=== PATIENT | male | born 1975 | race Caucasian/White ===

== ENCOUNTER → 2017-11-16 | Outpatient (REF) | payer OTHER ==
[2017-11-17 10:50] LABS: HEPATITIS B SURFACE ANTIBODY NEGATIVE (POSITIVE)
[2017-11-17 10:50] LABS: HIV 1&2 SCREEN CENTAUR NEGATIVE (NEGATIVE)
== END ==
LOC: M SFHCPLAZ 08:53
DX: B19.20 Unspecified viral hepatitis C without hepatic coma (principal)

== ENCOUNTER → 2017-12-16 | Outpatient (REF) | payer OTHER ==
[2017-12-17 11:33] LABS: HEPATITIS C VIRUS ABY INDEX > 11.0 INDEX (<0.8)
[2017-12-20 14:11] LABS: HCV RNA (INTERNATIONAL UNITS) 16901000 IU/mL (.); HEPATITIS C QUANTITATION See Final Results IU/mL (.)
[2017-12-21 12:24] LABS: HCV RNA NAA QUALITATIVE Positive (Negative)
== END ==
LOC: M LABDRAW1 12:33
DX: B19.20 Unspecified viral hepatitis C without hepatic coma (principal)

== ENCOUNTER → 2018-01-18 | Outpatient (REF) | payer OTHER ==
[2018-01-18 15:52] LABS: ALBUMIN/GLOBULIN RATIO 1.11 (1.00-1.93); ALKALINE PHOSPHATASE 53 U/L (45-117); ALT/SGPT 51 U/L (12-78); AST/SGOT 30 U/L (7-37); BILIRUBIN,DIRECT 0.1 MG/DL (0.0-0.2); BILIRUBIN,TOTAL 0.5 MG/DL (0.2-1.0); TOTAL PROTEIN 7.6 GM/DL (6.4-8.2)
[2018-01-25 14:12] LABS: HCV RNA (INTERNATIONAL UNITS) 14718000 IU/mL (.); HEPATITIS C QUANTITATION See Final Results IU/mL (.)
== END ==
LOC: M SFHCPLAZ 13:48
DX: B19.20 Unspecified viral hepatitis C without hepatic coma (principal)
CPT/HCPCS: 80076

== ENCOUNTER → 2018-01-24 | Outpatient (CLI) | payer OTHER | LOC: M OUTALCOH 09:10 | DX: F14.20 Cocaine dependence, uncomplicated (principal) ==

== ENCOUNTER 2018-02-14 13:00 | Outpatient (RCR) | payer OTHER ==
[2018-02-21] MEDS ORDERED: DULO1CAP (18:48)
[2018-02-21] MEDS ORDERED: ARIP1TAB6 (18:48)
[2018-02-21] MEDS ORDERED: LISI10TA4 (18:48)
[2018-02-21] MEDS ORDERED: NALT50TA4 (18:48)
[2018-02-21] MEDS ORDERED: ATOR1TAB21 (18:48)
[2018-02-21] MEDS ORDERED: PANT20TA2 (18:48)
[2018-02-21] MEDS ORDERED: IBUP-1022 PO (20:34)
[2018-02-21] MEDS ORDERED: ROBA500T PO (20:34)
== END 2018-02-28 ==
LOC: M OUTALCOH 13:00
PROVIDERS: ATTEND Psychiatry & Neurology Psychiatry
DX: F14.20 Cocaine dependence, uncomplicated (principal); F12.20 Cannabis dependence, uncomplicated

== ENCOUNTER 2018-02-21 18:39 | Emergency (ER) | payer OTHER ==
[~2018-02-21] VITALS: Ht 167.6 cm; Wt 90.9 kg
[2018-02-21] MEDS ORDERED: NALT50TA4 (18:48)
[2018-02-21] MEDS ORDERED: ATOR1TAB21 (18:48)
[2018-02-21] MEDS ORDERED: DULO1CAP (18:48)
[2018-02-21] MEDS ORDERED: ARIP1TAB6 (18:48)
[2018-02-21] MEDS ORDERED: PANT20TA2 (18:48)
[2018-02-21] MEDS ORDERED: LISI10TA4 (18:48)
[2018-02-21 19:24] LABS: BASO # 0.1 10^3/uL (0.0-0.2); BASO % 0.6 % (0.0-1.0); EOS # 0.2 10^3/uL (0.0-0.50); EOS % 2.2 % (0.0-3.0); HEMATOCRIT 45.2 % (42.0-52.0); HEMOGLOBIN 15.4 g/dl (13.5-17.5); LYMPH # 3.2 10^3/uL (1.5-4.5); LYMPH % 35.6 % (24.0-44.0); MEAN CORPUSCULAR HEMOGLOBIN 32.3 pg (27.0-33.0); MEAN CORPUSCULAR HGB CONC 34.1 g/dl (32.0-36.5); MEAN CORPUSCULAR VOLUME 94.8 fl (80.0-96.0); MONO # 0.5 10^3/uL (0.0-0.8); MONO % 5.5 % (0.0-5.0); NEUTROPHILS % 55.9 % (36.0-66.0); PLATELET COUNT, AUTOMATED 268 10^3/uL (150-450); RED BLOOD COUNT 4.77 10^6/uL (4.30-6.10)
[2018-02-21] MEDS ORDERED: NS 1,000 ML IV ONE (19:45)
[2018-02-21] MEDS ORDERED: KETOROLAC 30 MG/ML VIAL (J1885) IV ONE (19:45)
[2018-02-21 19:53] LABS: ALBUMIN 3.7 GM/DL (3.2-5.2); ALT/SGPT 61 U/L (12-78); BILIRUBIN,DIRECT < 0.1 MG/DL (0.0-0.2); BILIRUBIN,TOTAL 0.2 MG/DL (0.2-1.0); BLOOD UREA NITROGEN 18 MG/DL (7-18); CARBON DIOXIDE LEVEL 27 MEQ/L (21-32); CHLORIDE LEVEL 102 MEQ/L (98-107); CREATININE FOR GFR 1.07 MG/DL (0.70-1.30); GLOMERULAR FILTRATION RATE > 60.0 (>60); GLUCOSE, FASTING 93 MG/DL (70-100); LIPASE 179 U/L (73-393); POTASSIUM SERUM 4.6 MEQ/L (3.5-5.1); SODIUM LEVEL 135 MEQ/L (136-145); TOTAL PROTEIN 7.9 GM/DL (6.4-8.2)
--- NOTE | 2018-02-21 20:11 | REP ---
Clinical: Acute left flank pain. Technique: Axial noncontrast images from the lung bases to the pubic symphysis with coronal and sagittal re-formations. Comparison: None. Findings: Small subcentimeter hepatic hypodensities are suggested and may represent hepatic cysts. Spleen, pancreas, gallbladder, bilateral adrenal glands and kidneys are normal for noncontrast evaluation. No perinephric stranding, hydroureteronephrosis, intrarenal or obstructing ureteral calculi are identified. The enteric system is without obstruction or acute inflammatory process. Pelvis demonstrates normal bladder and age appropriate prostate/seminal vesicles. No ascites. No adenopathy. No free air. Abdominal aorta without aneurysm. 1 cm periumbilical fat-containing hernia noted. Musculoskeletal structures without focal osseous abnormality. Lung bases are clear. Impression: 1. No acute abdominopelvic pathology appreciated. 2. No perinephric stranding, hydronephrosis or nephroureterolithiasis. Electronically Signed by Neno Grubbs MD 02/21/2018 08:02 P
--- NOTE | 2018-02-21 20:12 | REP ---
Clinical: Cough and rales . Comparison: None . Technique: PA and lateral. Findings: The mediastinum and cardiac silhouette are normal. The lung prakash are clear and without acute consolidation, effusion, or pneumothorax. The skeletal structures are intact and normal. Impression: 1. No acute cardiopulmonary process. Electronically Signed by Neno Grubbs MD 02/21/2018 08:04 P
[2018-02-21] MEDS ORDERED: ROBA500T PO (20:34)
[2018-02-21] MEDS ORDERED: IBUP-1022 PO (20:34)
[2018-02-21] MEDS ORDERED: IBUPROFEN 600 MG TAB PO ONE (20:45)
[2018-02-21] MEDS ORDERED: METHOCARBAMOL 500 MG TAB PO ONE (20:45)
[2018-02-21] MEDS ORDERED: METHOCARBAMOL 1,000 MG/10 ML VIAL (J2800) IV ONE (20:45)
[2018-02-21 20:47] VITALS: BP 113/63
== END 2018-02-21 21:03 | disposition home or self-care (01) ==
LOC: M ED 18:39
DX: M54.5 Low back pain (principal); R10.9 Unspecified abdominal pain; I10 Essential (primary) hypertension; E78.5 Hyperlipidemia, unspecified; B19.20 Unspecified viral hepatitis C without hepatic coma; K21.9 Gastro-esophageal reflux disease without esophagitis; F17.210 Nicotine dependence, cigarettes, uncomplicated
CPT/HCPCS: 36415; 71046; 74176; 80048; 80076; 81001; 83690; 85025; 96361; 96374; 96375; 99284; J1885; J2800

== ENCOUNTER → 2018-04-04 | Outpatient (REF) | payer OTHER ==
[~2018-04-04] MED LIST: ARIP1TAB6; ATOR1TAB21; DULO1CAP; IBUP-1022 PO; LISI10TA4; NALT50TA4; PANT20TA2; ROBA500T PO
[2018-04-04 14:17] LABS: BASO # 0.1 10^3/uL (0.0-0.2); BASO % 0.7 % (0.0-1.0); EOS # 0.3 10^3/uL (0.0-0.50); EOS % 2.2 % (0.0-3.0); HEMATOCRIT 44.5 % (42.0-52.0); HEMOGLOBIN 15.1 g/dl (13.5-17.5); LYMPH % 32.3 % (24.0-44.0); MEAN CORPUSCULAR HEMOGLOBIN 31.9 pg (27.0-33.0); MEAN CORPUSCULAR HGB CONC 33.9 g/dl (32.0-36.5); MEAN CORPUSCULAR VOLUME 93.9 fl (80.0-96.0); MONO # 0.8 10^3/uL (0.0-0.8); MONO % 6.8 % (0.0-5.0); NEUTROPHILS # 7.1 10^3/uL (1.8-7.7); NEUTROPHILS % 57.8 % (36.0-66.0); PLATELET COUNT, AUTOMATED 282 10^3/uL (150-450); RED BLOOD COUNT 4.74 10^6/uL (4.30-6.10); WHITE BLOOD COUNT 12.3 10^3/uL (4.0-10.0)
[2018-04-04 14:34] LABS: ALBUMIN 4.1 GM/DL (3.2-5.2); ALT/SGPT 20 U/L (12-78); BILIRUBIN,TOTAL 0.6 MG/DL (0.2-1.0); BLOOD UREA NITROGEN 18 MG/DL (7-18); CALCIUM LEVEL 9.3 MG/DL (8.5-10.1); CARBON DIOXIDE LEVEL 27 MEQ/L (21-32); CHLORIDE LEVEL 105 MEQ/L (98-107); CREATININE FOR GFR 1.23 MG/DL (0.70-1.30); GLOMERULAR FILTRATION RATE > 60.0 (>60); GLUCOSE, FASTING 74 MG/DL (70-100); POTASSIUM SERUM 4.2 MEQ/L (3.5-5.1); SODIUM LEVEL 141 MEQ/L (136-145); TOTAL PROTEIN 7.5 GM/DL (6.4-8.2)
[2018-04-06 14:36] LABS: HEPATITIS C QUANTITATION <15 IU/mL (.)
== END ==
LOC: M SFHCPLAZ 10:05
PROVIDERS: ATTEND Internal Medicine Infectious Disease
DX: B18.2 Chronic viral hepatitis C (principal)

== ENCOUNTER → 2018-05-16 | Outpatient (REF) | payer OTHER ==
[2018-05-16 15:44] LABS: BASO # 0.1 10^3/uL (0.0-0.2); BASO % 0.8 % (0.0-1.0); EOS # 0.4 10^3/uL (0.0-0.50); EOS % 4.2 % (0.0-3.0); HEMATOCRIT 43.8 % (42.0-52.0); HEMOGLOBIN 14.5 g/dl (13.5-17.5); LYMPH # 3.8 10^3/uL (1.5-4.5); LYMPH % 39.9 % (24.0-44.0); MEAN CORPUSCULAR HEMOGLOBIN 32.1 pg (27.0-33.0); MEAN CORPUSCULAR HGB CONC 33.1 g/dl (32.0-36.5); MEAN CORPUSCULAR VOLUME 96.9 fl (80.0-96.0); MONO # 0.5 10^3/uL (0.0-0.8); MONO % 5.6 % (0.0-5.0); NEUTROPHILS # 4.7 10^3/uL (1.8-7.7); NEUTROPHILS % 49.3 % (36.0-66.0); PLATELET COUNT, AUTOMATED 257 10^3/uL (150-450); RED BLOOD COUNT 4.52 10^6/uL (4.30-6.10); WHITE BLOOD COUNT 9.6 10^3/uL (4.0-10.0)
[2018-05-16 15:51] LABS: ALBUMIN 3.7 GM/DL (3.2-5.2); ALT/SGPT 22 U/L (12-78); BILIRUBIN,DIRECT < 0.1 MG/DL (0.0-0.2); BILIRUBIN,TOTAL 0.2 MG/DL (0.2-1.0)
[2018-05-19 14:12] LABS: HEPATITIS C QUANTITATION HCV Not Detected IU/mL (.)
== END ==
LOC: M SFHCPLAZ 14:03
PROVIDERS: ATTEND Internal Medicine Infectious Disease
DX: B18.2 Chronic viral hepatitis C (principal)

== ENCOUNTER 2018-06-14 17:46 | Inpatient (IN) | payer OTHER ==
[~2018-06-14] VITALS: Ht 167.6 cm; Wt 94.0 kg
[~2018-06-14 17:46] MED LIST changes: -ATOR1TAB21; +ATOR1TAB21 PO; -LISI10TA4; +LISI10TA4 PO; -NALT50TA4; +NALT50TA4 PO; -PANT20TA2; +PANT20TA2 PO
[2018-06-14] MEDS ORDERED: SERT-155 PO (18:04)
[2018-06-14] MEDS ORDERED: ABIL10TA9 PO (18:04)
[2018-06-14 18:23] LABS: BASO # 0.1 10^3/uL (0.0-0.2); BASO % 0.7 % (0.0-1.0); EOS # 0.3 10^3/uL (0.0-0.50); HEMATOCRIT 43.1 % (42.0-52.0); HEMOGLOBIN 14.6 g/dl (13.5-17.5); LYMPH # 4.1 10^3/uL (1.5-4.5); LYMPH % 30.5 % (24.0-44.0); MEAN CORPUSCULAR HEMOGLOBIN 31.9 pg (27.0-33.0); MEAN CORPUSCULAR HGB CONC 33.9 g/dl (32.0-36.5); MEAN CORPUSCULAR VOLUME 94.3 fl (80.0-96.0); MONO # 0.7 10^3/uL (0.0-0.8); MONO % 5.4 % (0.0-5.0); NEUTROPHILS # 8.2 10^3/uL (1.8-7.7); NEUTROPHILS % 61.1 % (36.0-66.0); PLATELET COUNT, AUTOMATED 272 10^3/uL (150-450); RED BLOOD COUNT 4.57 10^6/uL (4.30-6.10); WHITE BLOOD COUNT 13.4 10^3/uL (4.0-10.0)
[2018-06-14] MEDS: NS 1,000 ML IV SCH (18:27)
[2018-06-14] MEDS ORDERED: CHARCOAL ACTIVATED LIQUID 25 GM/120 ML BTL PO ONE (18:30)
[2018-06-14 18:52] LABS: ALBUMIN 4.2 GM/DL (3.2-5.2); ALT/SGPT 28 U/L (12-78); BILIRUBIN,DIRECT 0.1 MG/DL (0.0-0.2); BILIRUBIN,TOTAL 0.5 MG/DL (0.2-1.0); BLOOD UREA NITROGEN 22 MG/DL (7-18); CARBON DIOXIDE LEVEL 28 MEQ/L (21-32); CHLORIDE LEVEL 106 MEQ/L (98-107); CPK CREATINE PHOSPHOKINASE 266 U/L (39-308); CREATININE FOR GFR 1.22 MG/DL (0.70-1.30); ETHYL ALCOHOL (ETHANOL) < 0.003 % (0.000-0.010); GLOMERULAR FILTRATION RATE > 60.0 (>60); GLUCOSE, FASTING 87 MG/DL (70-100); POTASSIUM SERUM 4.6 MEQ/L (3.5-5.1); SALICYLATE LEVEL 2.8 MG/DL (5.0-30.0); SODIUM LEVEL 139 MEQ/L (136-145); TOTAL PROTEIN 7.4 GM/DL (6.4-8.2)
[2018-06-14 18:53] LABS: ACETAMINOPHEN LEVEL < 2.0 UG/ML (10.0-30.0)
[2018-06-14 21:06] LABS: AMPHETAMINES LEVEL URINE NEGATIVE (NEGATIVE); BARBITURATES URINE NEGATIVE (NEGATIVE); BENZODIAZEPINES URINE NEGATIVE (NEGATIVE); CANNABINOIDS URINE NEGATIVE (NEGATIVE); COCAINE METABOLITE URINE NEGATIVE (NEGATIVE); METHADONE URINE NEGATIVE (NEGATIVE); OPIATES URINE NEGATIVE (NEGATIVE); PHENCYCLIDINE URINE NEGATIVE (NEGATIVE)
--- NOTE | 2018-06-14 21:45 | ECGEPIP ---
Stationary ECG Study [facility] - ED Test Date: 2018-06-14 Pat Name: VIVEK SPEARS Department: Room: - Gender: M Accordion Maker: JORDYN : 1975 Requested By: Dieudonne Lepe Order Number: [id number] Reading MD: Tosha Lara Measurements Intervals [place] Rate: 66 P: 38 MD: 140 QRS: 72 QRSD: 111 T: 59 QT: 371 QTc: 391 Interpretive Statements SINUS RHYTHM MODERATE INTRAVENTRICULAR CONDUCTION DELAY NSTTW ABNORMALITY NO PRIOR FOR COMPARISON Electronically Signed On 06-14-2018 21:45:10 EDT by Tosha Lara
[2018-06-15] MEDS: NS 1,000 ML IV SCH ×2 (00:59→07:39)
[2018-06-15] MEDS ORDERED: LISINOPRIL 10 MG TAB PO ONE (07:45)
[2018-06-15] MEDS ORDERED: PANTOPRAZOLE 20 MG TAB PO ONE (07:45)
[2018-06-15] MEDS ORDERED: ATORVASTATIN 20 MG TAB PO ONE (07:45)
[2018-06-15] MEDS ORDERED: MAVY1TAB PO (09:36)
[2018-06-15] MEDS ORDERED: FLUT50SP21 NARES (09:39)
[2018-06-15] MEDS ORDERED: MOM 30ML SUSPENSION UDC PO PRN (14:30)
[2018-06-15] MEDS ORDERED: ACETAMINOPHEN TAB 650MG DOSE (2X325MG) PO PRN (14:30)
[2018-06-15] MEDS ORDERED: MAALOX 30 ML SUSP *UDC PO PRN (14:30)
[2018-06-15 15:45] VITALS: BP 125/79
--- NOTE | 2018-06-16 06:02 | CR.PDOC ---
General Date of Consultation: Jun 14, 2018 Consultation REASON FOR CONSULTATION/CHIEF COMPLAINT: . Management of medical comorbidities HISTORY OF PRESENT ILLNESS: . 43-year-old male with past medical history of hypertension, dyslipidemia, GERD, polysubstance abuse, and bipolar disorder was brought to the ER after he states that he took 8 tablets of duloxetine prior to arrival. The patient expressed suicidal ideations due to being depressed and having problems with his girlfriend. He has been admitted under the psychiatry service for further psychiatric stabilization. The medicine service has been consulted for further management of his medical comorbidities. At this time, the patient denies any acute complaints of fevers, chills, chest pain, palpitations, abdominal pain, or any nausea/vomiting/diarrhea. ALLERGIES: Please see below. HOME MEDICATIONS: Please see below. PAST MEDICAL HISTORY: As noted above REVIEW OF SYSTEMS: 10 point review of systems negative unless otherwise specified in HPI. PHYSICAL EXAMINATION: VITAL SIGNS: Please see below. GENERAL APPEARANCE: . Awake, alert, in no acute distress HEENT: . Normocephalic, atraumatic RESPIRATORY: . Clear to auscultation bilaterally CARDIOVASCULAR: . Normal rate, normal S1, S2 ABDOMEN: . Soft, nontender, nondistended EXTREMITIES: . No erythema, no tenderness LABORATORY DATA: Please see below. ASSESSMENT/PLAN: Suicidal Ideations, Mood Disorder Management as per Psych Leukocytosis likely Reactive on admission Noted from 06/14 No active signs/symptoms suggestive of underlying infection We will repeat a CBC this AM to follow up Hypertension Continue lisinopril Dyslipidemia Continue statin GERD Continue PPI History of polysubstance abuse Patient denies any recent use over the past 2 years Urine drug screen noted to be negative DVT prophylaxis Ambulation encouraged Vital Signs/I&O Vital Signs Date Time Temp Pulse Resp B/P (MAP) Pulse Ox O2 Delivery O2 Flow Rate FiO2 06/15/18 15:45 98.4 64 16 125/79 (94) 96 06/15/18 02:23 Room Air Allergies Coded Allergies: No Known Allergies (Unverified , 06/14/18) Home Medications Scheduled Aripiprazole (Abilify) 10 Mg Tablet, 10 MG PO DAILY, (Reported) Atorvastatin Calcium (Atorvastatin Calcium) 20 Mg Tab, 20 MG PO DAILY, (Reported) Glecaprevir/Pibrentasvir (Mavyret 100-40 mg Tablet) 1 Each Tablet, 1 TAB PO DAILY, (Reported) PT STATES HE TAKES 1 DAILY Lisinopril (Lisinopril) 10 Mg Tab, 10 MG PO DAILY, (Reported) Naltrexone HCl (Naltrexone HCl) 50 Mg Tab, 50 MG PO DAILY, (Reported) Pantoprazole Sodium (Pantoprazole Sodium) 20 Mg Tab, 20 MG PO DAILY, (Reported) Sertraline HCl (Sertraline HCl) 50 Mg Tablet, 50 MG PO DAILY, (Reported) Scheduled PRN Fluticasone Propionate (Fluticasone Propionate) 15.8 Ml [place].susp, 2 SPRAY NARES DAILY PRN for NASAL CONGESTION, (Reported) Ibuprofen (Ibuprofen) 600 Mg Tab, 600 MG PO Q6H PRN for PAIN, #30 HIRAM BRAND MD Jun 16, 2018 06:02
[2018-06-16 06:44] VITALS: BP 135/76
[2018-06-16 08:26] LABS: BASO # 0.1 10^3/uL (0.0-0.2); BASO % 0.6 % (0.0-1.0); EOS # 0.3 10^3/uL (0.0-0.50); HEMATOCRIT 44.7 % (42.0-52.0); HEMOGLOBIN 15.2 g/dl (13.5-17.5); LYMPH # 4.1 10^3/uL (1.5-4.5); LYMPH % 38.6 % (24.0-44.0); MEAN CORPUSCULAR HEMOGLOBIN 32.5 pg (27.0-33.0); MEAN CORPUSCULAR VOLUME 95.7 fl (80.0-96.0); MONO # 0.6 10^3/uL (0.0-0.8); MONO % 5.6 % (0.0-5.0); NEUTROPHILS # 5.5 10^3/uL (1.8-7.7); NEUTROPHILS % 51.9 % (36.0-66.0); PLATELET COUNT, AUTOMATED 255 10^3/uL (150-450); RED BLOOD COUNT 4.67 10^6/uL (4.30-6.10); WHITE BLOOD COUNT 10.6 10^3/uL (4.0-10.0)
[2018-06-16] MEDS: NALTREXONE 50 MG TAB PO SCH (09:40)
[2018-06-16] MEDS: SERTRALINE HCL 50 MG TAB PO SCH (09:40)
[2018-06-16] MEDS: ARIPiprazole 10 MG TAB PO SCH (09:41)
[2018-06-16] MEDS: ATORVASTATIN 20 MG TAB PO SCH (09:41)
[2018-06-16] MEDS: LISINOPRIL 10 MG TAB PO SCH (09:41)
[2018-06-16] MEDS: NICOTINE 21MG/24HR 1 EA TRANSDERMAL TD SCH (09:42)
[2018-06-16] MEDS: PANTOPRAZOLE 20 MG TAB PO SCH (09:42)
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
[2018-06-16 18:04] VITALS: BP 124/72
[2018-06-16] MEDS: IBUPROFEN 600 MG TAB PO PRN (19:40)
[2018-06-17] MEDS: IBUPROFEN 600 MG TAB PO PRN ×2 (05:19→16:46)
[2018-06-17 06:58] VITALS: BP 173/55
[2018-06-17] MEDS: SERTRALINE HCL 50 MG TAB PO SCH (08:16)
[2018-06-17] MEDS: NALTREXONE 50 MG TAB PO SCH (08:16)
[2018-06-17] MEDS: ARIPiprazole 10 MG TAB PO SCH (08:17)
[2018-06-17] MEDS: PANTOPRAZOLE 20 MG TAB PO SCH (08:17)
[2018-06-17] MEDS: NICOTINE 21MG/24HR 1 EA TRANSDERMAL TD SCH (08:17)
[2018-06-17] MEDS: LISINOPRIL 10 MG TAB PO SCH (08:17)
[2018-06-17] MEDS: ATORVASTATIN 20 MG TAB PO SCH (08:17)
--- NOTE | 2018-06-17 15:33 | MHIPNPDOC ---
[facility] Progress Note Progress Note DATE OF SERVICE: 06/17/18 HISTORY: Patient is a 43 -year-old , male, who, according to ED report: " Pt presented to ED stating that he took eight Cymbalta pills, with intent to end his life. Pt states he became depressed and anxious because he thought his girlfriend was going to break up with him. Pt states that he felt like he had no reason to go on living if his girlfriend was going to leave him. Pt was tearful at times during interview with this medical writer. Pt states that he is no longer feeling suicidal and that his girlfriend did not end up breaking up with him. However, when asked what he would do in the future if he and his girlfriend were to break up, Pt stated he would have no reason to live. Pt also identified money problems, stress at work, and chronic back pain/spasms as other current stressors in his life. Pt has a previous suicide attempt by overdose approximately 15 years ago. Pt was admitted to [facility] approximately one year ago for suicidal ideation. Pt receives MH services at [facility]. VITAL SIGNS: See below. NEW TEST RESULTS: See below CURRENT MEDICATIONS: See below. MENTAL STATUS EXAMINATION: General Appearance: unkempt, disheveled, appears stated age, hospital scrubs/clothing Demeanor: average Eye Contact: average Behavior: cooperative Speech: a little bit slurred, sometimes fast and a little bit pressured Mood: anxious Affect: less constricted, congruent, anxious Thought Process: not tangential, a little immature for his age, a little concrete Thought Content (Delusions): none reported Thought Content (Other): preoccupied about losing his job Thought Content (Aggressive): none reported Perception (Hallucinations): none reported Perception (Other): none reported Cognition (Impairment of): none reported Cognition(Intelligence Est.): borderline Oriented: Awake, Alert, Oriented times three Insight: limited Judgment: Poor Psychosis: Denies Diagnoses 1. Bipolar disorder 2. Substance abuse by history 3. Low intellectual functioning 4. R/O Personality disorder 5. PTSD ASSESSMENT: Patient seems to be very naive regarding relationship issues. He says he has been hurt before, he has been scammed by women online. He says he has pardoned his father for never being around him when he was a child, he never showed up to his graduation either. The patient seems not to have the maturity he needs to be in a relationship, he still has issues with his absent father (he says he has pardoned him and he raises his voice and becomes irritated but he says he is not irritated). The patient seems to have low intellectual functioning, besides his mental illness. MANAGEMENT PLAN: will continue with the same treatment plan TIME SPENT: 20 minutes. Vital Signs Vital Signs Date Time Temp Pulse Resp B/P (MAP) Pulse Ox O2 Delivery O2 Flow Rate FiO2 06/17/18 08:17 142/82 06/17/18 06:58 98.1 56 18 06/15/18 15:45 96 06/15/18 02:23 Room Air Current Medications Current Medications Acetaminophen (Tylenol Tab) 650 mg Q6HP PRN PO HEADACHE or DISCOMFORT; Start 06/15/18 at 14:30 Al Hydrox/Mg Hydrox/Simethicone (Mylanta) 30 ml Q4HP PRN PO HEARTBURN/INDIGESTION; Start 06/15/18 at 14:30 Aripiprazole (AbiLIFY) 10 mg DAILY PO Last administered on 06/17/18 08:17; Start 06/16/18 at 09:00 Atorvastatin Calcium (Lipitor) 20 mg DAILY PO Last administered on 06/17/18at 08:17; Start 06/16/18 at 09:00 Home Med (Med Rec Complete!) ASDIRECTED XX ; Start 06/15/18 at 09:45; Stop 06/15/18 at 09:45; Status DC Ibuprofen (Advil) 600 mg Q6HP PRN PO PAIN Last administered on 06/17/18at 05:19; Start 06/15/18 at 14:30 Lisinopril (Prinivil) 10 mg DAILY PO Last administered on 06/17/18at 08:17; Start 06/16/18 at 09:00 Magnesium Hydroxide (Milk Of Magnesia) 30 ml DAILYPRN PRN PO CONSTIPATION; Start 06/15/18 at 14:30 Naltrexone HCl (Revia) 50 mg DAILY PO Last administered on 06/17/18at 08:16; Start 06/16/18 at 09:00 Nicotine (Nicoderm Cq 21mg) 1 patch DAILY TD Last administered on 06/17/18at 08:17; Start 06/16/18 at 09:00 Pantoprazole Sodium (Protonix) 20 mg DAILY PO Last administered on 06/17/18at 08:17; Start 06/16/18 at 09:00 Sertraline HCl (Zoloft) 50 mg DAILY PO Last administered on 06/17/18at 08:16; Start 06/16/18 at 09:00 Sodium Chloride 1,000 ml @ 150 mls/hr Q6H40M IV Last administered on 06/14/18at 18:27; Start 06/14/18 at 18:19; Stop 06/15/18 at 15:54; Status DC Trazodone HCl (Desyrel) 50 mg QHSP PRN PO INSOMNIA; Start 06/15/18 at 14:30 Allergies Coded Allergies: No Known Allergies (Unverified , 06/14/18) RIGOBERTO HARVEY MD Jun 17, 2018 15:23
[2018-06-17 18:03] VITALS: BP 149/80
[2018-06-17] MEDS: traZODone 50 MG TAB PO PRN (20:55)
[2018-06-18] MEDS: IBUPROFEN 600 MG TAB PO PRN ×2 (06:59→13:50)
[2018-06-18 07:02] VITALS: BP 135/86
[2018-06-18] MEDS: PANTOPRAZOLE 20 MG TAB PO SCH (08:19)
[2018-06-18] MEDS: ATORVASTATIN 20 MG TAB PO SCH (08:19)
[2018-06-18] MEDS: NALTREXONE 50 MG TAB PO SCH (08:19)
[2018-06-18] MEDS: NICOTINE 21MG/24HR 1 EA TRANSDERMAL TD SCH (08:19)
[2018-06-18] MEDS: SERTRALINE HCL 50 MG TAB PO SCH (08:19)
[2018-06-18] MEDS: LISINOPRIL 10 MG TAB PO SCH (08:19)
[2018-06-18] MEDS: ARIPiprazole 10 MG TAB PO SCH (08:19)
--- NOTE | 2018-06-18 15:49 | MHIPN ---
DATE: 06/15/2018 CHIEF COMPLAINT: Feels better. SUBJECTIVE: Seen for followup in the presence of staff. Says feels better and that he is less depressed. Denies having any suicidal thoughts and intents. Says sleeps better. MENTAL STATUS EXAMINATION: Neat, cooperative. No agitation. No psychomotor retardation. He is coherent. Affect fairly broad. No evidence of any thoughts of harming himself. Denies any suicidal thoughts or intents at present. Denies any homicidal ideas or intents. Judgment is improved. Insight is improved. Currently no evidence of psychosis, and is alert and oriented. ASSESSMENT: 1. Bipolar disorder by history. 2. Borderline intellectual functioning. 3. Posttraumatic stress disorder by history. PLAN: Continue current care, observations. Encourage participation in activities in the unit. VITAL SIGNS: These are as listed. Blood pressure 121/74, pulse 65, temperature 98.2.
[2018-06-18 18:00] VITALS: BP 140/76
[2018-06-18] MEDS: traZODone 50 MG TAB PO PRN (20:40)
[2018-06-19] MEDS: IBUPROFEN 600 MG TAB PO PRN (06:19)
[2018-06-19 06:22] VITALS: BP 147/84
[2018-06-19] MEDS: LISINOPRIL 10 MG TAB PO SCH (08:16)
[2018-06-19] MEDS: PANTOPRAZOLE 20 MG TAB PO SCH (08:17)
[2018-06-19] MEDS: ATORVASTATIN 20 MG TAB PO SCH (08:17)
[2018-06-19] MEDS: SERTRALINE HCL 50 MG TAB PO SCH (08:17)
[2018-06-19] MEDS: NICOTINE 21MG/24HR 1 EA TRANSDERMAL TD SCH (08:17)
[2018-06-19] MEDS: NALTREXONE 50 MG TAB PO SCH (08:17)
[2018-06-19] MEDS: ARIPiprazole 10 MG TAB PO SCH (08:17)
[2018-06-19 18:00] VITALS: BP 136/73
[2018-06-20] MEDS: IBUPROFEN 600 MG TAB PO PRN (05:20)
[2018-06-20 06:15] VITALS: BP 134/83
[2018-06-20 08:19] VITALS: BP 138/82
[2018-06-20] MEDS: PANTOPRAZOLE 20 MG TAB PO SCH (08:19)
[2018-06-20] MEDS: ARIPiprazole 10 MG TAB PO SCH (08:19)
[2018-06-20] MEDS: LISINOPRIL 10 MG TAB PO SCH (08:19)
[2018-06-20] MEDS: ATORVASTATIN 20 MG TAB PO SCH (08:19)
[2018-06-20] MEDS: NICOTINE 21MG/24HR 1 EA TRANSDERMAL TD SCH (08:19)
[2018-06-20] MEDS: SERTRALINE HCL 50 MG TAB PO SCH (08:19)
[2018-06-20] MEDS: NALTREXONE 50 MG TAB PO SCH (08:19)
--- NOTE | 2018-06-20 09:05 | MHIPN ---
DATE: 06/19/2018 CHIEF COMPLAINT: Says feels better. SUBJECTIVE: Seen for followup. Indicates has been feeling better, though he says he has been worried about his mother, his girlfriend, and they have had disagreements with each other. He says he has also been concerned his girlfriend has been driving his car, she has a driver service technician's permit, and has to have a driver service technician with her. He says he did not let it upset him, and informed his mother that he will talk to her later. MENTAL STATUS EXAMINATION: Neat. Cooperative. No agitation. No psychomotor retardation. Coherent. Affect fair range, broader than yesterday. Denies thoughts of harming himself or anyone else at present. Currently there is no evidence of any psychosis. He is alert and oriented. Judgment improved, insight possibly improved. ASSESSMENT: Bipolar disorder by history. Post traumatic stress disorder. Borderline intellectual functioning. PLAN: Continue current care. Observations. Should progress continue, anticipate the patient being discharged. VITAL SIGNS: Blood pressure 124/75, pulse 63, temperature 97.3.
[2018-06-20] MEDS ORDERED: NALT50TA4 PO (10:04)
[2018-06-20] MEDS ORDERED: ABIL10TA9 PO (10:04)
[2018-06-20] MEDS ORDERED: LISI10TA4 PO (10:04)
[2018-06-20] MEDS ORDERED: SERT-155 PO (10:04)
[2018-06-20] MEDS ORDERED: TRAZO50TA PO (10:04)
[2018-06-20] MEDS ORDERED: PANT20TA2 PO (10:04)
[2018-06-20] MEDS ORDERED: FLUT50SP21 NARES (10:04)
[2018-06-20] MEDS ORDERED: ATOR1TAB21 PO (10:04)
[2018-06-20] MEDS ORDERED: IBUP-1022 PO (10:04)
[2018-06-20] MEDS ORDERED: MAVY1TAB PO (10:04)
[2018-06-20] MEDS ORDERED: NICO21PAT TD (10:04)
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
== END 2018-06-20 11:58 | disposition home or self-care (01) | DRG 753 ==
LOC: M ED 17:46 → M ED INP 06-15 14:20 → M PSY 06-15 15:45
PROVIDERS: ADMIT Psychiatry & Neurology Psychiatry; ATTEND Psychiatry & Neurology Psychiatry
DX: F31.9 Bipolar disorder, unspecified (principal); F78 Other intellectual disabilities; I10 Essential (primary) hypertension; F43.10 Post-traumatic stress disorder, unspecified; F60.89 Other specific personality disorders; Z79.899 Other long term (current) drug therapy; E78.5 Hyperlipidemia, unspecified; K21.9 Gastro-esophageal reflux disease without esophagitis; D72.829 Elevated white blood cell count, unspecified

== ENCOUNTER → 2018-08-18 | Outpatient (REF) | payer OTHER ==
[~2018-08-18] MED LIST changes: +ABIL10TA9 PO; +FLUT50SP21 NARES; +MAVY1TAB PO; +NICO21PAT TD; +SERT-155 PO; +TRAZ1TAB10 PO
[2018-08-18 15:55] LABS: BASO # 0.1 10^3/uL (0.0-0.2); BASO % 0.6 % (0.0-1.0); EOS # 0.4 10^3/uL (0.0-0.50); EOS % 3.5 % (0.0-3.0); HEMATOCRIT 43.6 % (42.0-52.0); HEMOGLOBIN 14.8 g/dl (13.5-17.5); LYMPH # 3.6 10^3/uL (1.5-4.5); LYMPH % 33.8 % (24.0-44.0); MEAN CORPUSCULAR HGB CONC 33.9 g/dl (32.0-36.5); MEAN CORPUSCULAR VOLUME 97.1 fl (80.0-96.0); MONO # 0.6 10^3/uL (0.0-0.8); MONO % 5.4 % (0.0-5.0); NEUTROPHILS % 56.4 % (36.0-66.0); PLATELET COUNT, AUTOMATED 325 10^3/uL (150-450); RED BLOOD COUNT 4.49 10^6/uL (4.30-6.10); WHITE BLOOD COUNT 10.6 10^3/uL (4.0-10.0)
[2018-08-18 16:02] LABS: ALBUMIN 3.7 GM/DL (3.2-5.2); ALT/SGPT 25 U/L (12-78); BILIRUBIN,DIRECT < 0.1 MG/DL (0.0-0.2); BILIRUBIN,TOTAL 0.3 MG/DL (0.2-1.0); TOTAL PROTEIN 7.3 GM/DL (6.4-8.2)
[2018-08-23 14:08] LABS: HEPATITIS C QUANTITATION HCV Not Detected IU/mL (.)
== END ==
LOC: M SFHCPLAZ 14:02
PROVIDERS: ATTEND Internal Medicine Infectious Disease
DX: B18.2 Chronic viral hepatitis C (principal)

== ENCOUNTER 2018-12-27 20:38 | Emergency (ER) | payer OTHER ==
[~2018-12-27] VITALS: Ht 167.6 cm; Wt 85.9 kg
[~2018-12-27 20:38] MED LIST changes: -DULO1CAP; +DULO1CAP4; +FLUT15.820 NARES; -FLUT50SP21 NARES; -SERT-155 PO; +SERT50TA29 PO
[2018-12-27] MEDS ORDERED: NS 1,000 ML IV ONE (23:00)
[2018-12-27 23:10] LABS: HEMATOCRIT 44.3 % (42.0-52.0); HEMOGLOBIN 14.7 g/dl (13.5-17.5); MEAN CORPUSCULAR HEMOGLOBIN 31.9 pg (27.0-33.0); MEAN CORPUSCULAR HGB CONC 33.2 g/dl (32.0-36.5); MEAN CORPUSCULAR VOLUME 96.1 fl (80.0-96.0); PLATELET COUNT, AUTOMATED 303 10^3/uL (150-450); RED BLOOD COUNT 4.61 10^6/uL (4.30-6.10); WHITE BLOOD COUNT 13.4 10^3/uL (4.0-10.0)
[2018-12-27 23:34] LABS: ATYPICAL LYMPH 3 % (0-5); LYMPHOCYTES 28 % (16-44); MONOCYTES 5 % (0-5); NEUTROPHILS 64 % (28-66)
[2018-12-27 23:35] LABS: PLATELET ESTIMATE NORMAL (NORMAL)
[2018-12-27 23:36] LABS: MICROCYTOSIS 1+
[2018-12-27 23:37] LABS: SMUDGE CELLS 1+
--- NOTE | 2018-12-27 23:53 | REPVR ---
PROCEDURE INFORMATION: Exam: CT Head Without Contrast Exam date and time: 12/27/2018 10:47 PM Clinical history: 43 years old, male; Dizziness; Additional info: Altered mental status TECHNIQUE: Imaging protocol: Computed tomography of the head without contrast. Radiation optimization: All CT scans at this facility use at least one of these dose optimization techniques: automated exposure control; mA and/or kV adjustment per patient size (includes targeted exams where dose is matched to clinical indication); or iterative reconstruction. COMPARISON: No relevant prior studies available. FINDINGS: Brain: Normal. No hemorrhage. Unremarkable white matter. No mass effect. Ventricles: Normal. No ventriculomegaly. Bones/joints: Unremarkable. No acute fracture. Sinuses: Visualized sinuses are unremarkable. No fluid levels. Mastoid air cells: Visualized mastoid air cells are well aerated. Soft tissues: Unremarkable. IMPRESSION: No acute intracranial abnormality. Electronically signed by: Azam Block On 12/27/2018 23:52:37 PM
[2018-12-28 00:02] LABS: ALT/SGPT 15 U/L (12-78); BLOOD UREA NITROGEN 15 MG/DL (7-18); CALCIUM LEVEL 9.2 MG/DL (8.5-10.1); CARBON DIOXIDE LEVEL 29 MEQ/L (21-32); CHLORIDE LEVEL 107 MEQ/L (98-107); CK-MB VALUE MASS 1.7 NG/ML (<3.6); CPK CREATINE PHOSPHOKINASE 91 U/L (39-308); CREATININE FOR GFR 1.13 MG/DL (0.70-1.30); GLOMERULAR FILTRATION RATE > 60.0 (>60); GLUCOSE, FASTING 87 MG/DL (70-100); SODIUM LEVEL 140 MEQ/L (136-145)
[2018-12-28 00:03] LABS: ACETAMINOPHEN LEVEL < 2.0 UG/ML (10.0-30.0); ALBUMIN 3.9 GM/DL (3.2-5.2); BILIRUBIN,DIRECT < 0.1 MG/DL (0.0-0.2); BILIRUBIN,TOTAL 0.4 MG/DL (0.2-1.0); ETHYL ALCOHOL (ETHANOL) < 0.003 % (0.000-0.010); MB/CK RELATIVE INDEX 1.87 (< OR =4); SALICYLATE LEVEL 3.7 MG/DL (5.0-30.0); TOTAL PROTEIN 7.4 GM/DL (6.4-8.2); TROPONIN I < 0.02 NG/ML (< 0.10)
[2018-12-28 00:58] LABS: AMPHETAMINES LEVEL URINE NEGATIVE (NEGATIVE); BARBITURATES URINE NEGATIVE (NEGATIVE); BENZODIAZEPINES URINE NEGATIVE (NEGATIVE); CANNABINOIDS URINE NEGATIVE (NEGATIVE); COCAINE METABOLITE URINE NEGATIVE (NEGATIVE); METHADONE URINE NEGATIVE (NEGATIVE); OPIATES URINE NEGATIVE (NEGATIVE); PHENCYCLIDINE URINE NEGATIVE (NEGATIVE)
[2018-12-28 02:54] VITALS: BP 125/76
[2018-12-28] MEDS ORDERED: LISI10TA4 PO (20:06)
[2018-12-28] MEDS ORDERED: SERT50TA29 PO (20:06)
[2018-12-28] MEDS ORDERED: ATOR1TAB21 PO (20:06)
[2018-12-28] MEDS ORDERED: PANT20TA2 PO (20:06)
--- NOTE | 2018-12-29 06:54 | ECGEPIP ---
[facility] - ED Test Date: 2018-12-27 Pat Name: VIVEK SPEARS Department: Room: - Gender: Male [employer]: : 1975 Requested By: ISAIAH Edmond Order Number: [id number] Reading MD: Tosha Lara Measurements Intervals Part[place] Rate: 63 P: 48 CO: 145 QRS: 67 QRSD: 111 T: 29 QT: 370 QTc: 380 Interpretive Statements SINUS RHYTHM WITH SINUS ARRHYTHMIA MODERATE INTRAVENTRICULAR CONDUCTION DELAY SIMILAR 06/14/18 Electronically Signed on 12-29-2018 6:54:13 EDT by Tosha Lara
== END 2018-12-28 03:17 | disposition home or self-care (01) ==
LOC: M ED 20:38
DX: R41.82 Altered mental status, unspecified (principal); I10 Essential (primary) hypertension; E78.00 Pure hypercholesterolemia, unspecified; B18.2 Chronic viral hepatitis C
CPT/HCPCS: 70450; 80048; 80076; 80307; 82140; 82550; 82553; 83605; 84443; 85025; 93005; 93041; 94760; 96374; 99284; G0480

== ENCOUNTER 2018-12-28 15:54 | Inpatient (IN) | payer OTHER ==
[~2018-12-28] VITALS: Ht 167.6 cm; Wt 84.0 kg
[2018-12-28 17:51] LABS: HEMATOCRIT 42.2 % (42.0-52.0); MEAN CORPUSCULAR HEMOGLOBIN 31.8 pg (27.0-33.0); MEAN CORPUSCULAR HGB CONC 33.2 g/dl (32.0-36.5); MEAN CORPUSCULAR VOLUME 95.9 fl (80.0-96.0); PLATELET COUNT, AUTOMATED 284 10^3/uL (150-450); WHITE BLOOD COUNT 11.2 10^3/uL (4.0-10.0)
[2018-12-28 18:14] LABS: AMPHETAMINES LEVEL URINE NEGATIVE (NEGATIVE); BARBITURATES URINE NEGATIVE (NEGATIVE); BENZODIAZEPINES URINE NEGATIVE (NEGATIVE); CANNABINOIDS URINE NEGATIVE (NEGATIVE); COCAINE METABOLITE URINE NEGATIVE (NEGATIVE); METHADONE URINE NEGATIVE (NEGATIVE); OPIATES URINE NEGATIVE (NEGATIVE); PHENCYCLIDINE URINE NEGATIVE (NEGATIVE)
[2018-12-28 18:27] LABS: ACETAMINOPHEN LEVEL < 2.0 UG/ML (10.0-30.0); ALBUMIN 3.6 GM/DL (3.2-5.2); ALT/SGPT 16 U/L (12-78); BILIRUBIN,DIRECT < 0.1 MG/DL (0.0-0.2); BILIRUBIN,TOTAL 0.3 MG/DL (0.2-1.0); BLOOD UREA NITROGEN 10 MG/DL (7-18); CARBON DIOXIDE LEVEL 27 MEQ/L (21-32); CHLORIDE LEVEL 108 MEQ/L (98-107); CREATININE FOR GFR 1.02 MG/DL (0.70-1.30); ETHYL ALCOHOL (ETHANOL) < 0.003 % (0.000-0.010); GLOMERULAR FILTRATION RATE > 60.0 (>60); GLUCOSE, FASTING 149 MG/DL (70-100); POTASSIUM SERUM 3.9 MEQ/L (3.5-5.1); SALICYLATE LEVEL 3.3 MG/DL (5.0-30.0); SODIUM LEVEL 140 MEQ/L (136-145); THYROID STIMULATING HORMONE 0.855 uIU/ML (0.358-3.740); TOTAL PROTEIN 6.8 GM/DL (6.4-8.2)
[2018-12-28] MEDS ORDERED: ACETAMINOPHEN TAB 650MG DOSE (2X325MG) PO PRN (20:00)
[2018-12-28] MEDS ORDERED: MOM 30ML SUSPENSION UDC PO PRN (20:00)
[2018-12-28] MEDS ORDERED: traZODone 50 MG TAB PO PRN (20:00)
[2018-12-28] MEDS ORDERED: MAALOX 30 ML SUSP *UDC PO PRN (20:00)
[2018-12-28] MEDS ORDERED: SERT50TA29 PO (20:06)
[2018-12-28] MEDS ORDERED: LISI10TA4 PO (20:06)
[2018-12-28] MEDS ORDERED: ATOR1TAB21 PO (20:06)
[2018-12-28] MEDS ORDERED: PANT20TA2 PO (20:06)
[2018-12-28 22:06] VITALS: BP 128/76
[2018-12-29 06:19] VITALS: BP 131/68
[2018-12-29] MEDS ORDERED: INFLUENZA QUADRIVALENT PF VACCINE 0.5ML SYRINGE (90686) IM ONE (09:00)
[2018-12-29] MEDS: NICOTINE 21MG/24HR 1 EA TRANSDERMAL TD SCH (09:00)
[2018-12-29] MEDS: SERTRALINE HCL 50 MG TAB PO SCH (09:43)
[2018-12-29] MEDS: PANTOPRAZOLE 20 MG TAB PO SCH (09:43)
[2018-12-29] MEDS: ATORVASTATIN 20 MG TAB PO SCH (09:43)
[2018-12-29] MEDS: LISINOPRIL 10 MG TAB PO SCH (09:43)
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
[2018-12-29 18:00] VITALS: BP 129/74
[2018-12-30 07:01] VITALS: BP 123/73
[2018-12-30] MEDS: NICOTINE 21MG/24HR 1 EA TRANSDERMAL TD SCH (09:00)
--- NOTE | 2018-12-30 09:07 | MHDSPDOC ---
[facility] Discharge Summary Discharge Summary DATE OF ADMISSION: Dec 28, 2018 at 19:48 DATE OF DISCHARGE: 12/30/18 Woodrow Tong Discharge Woodrow Tong Select Gender MRN: N/A Date of : MM/DD/YYYY Date of Service: 12/30/2018 Diagnoses PTSD, chronic Alcohol use disorder in remission Nicotine use disorder, moderate Cocaine use disorder, in unspecified remission Intellectual disability, moderate History of Present Illness Patient is a 43-year-old man with a history of intellectual disabilities, is brought by his spouse, who reports that he is more anxious and irritable the las t several weeks. He was initially upset and was admitted to the inpatient unit for further observation. When I met with the patient, he described that he had become more anxious due to multiple stressors and worries that his could be cheating on him as she is spending time with her ex and that he feels that she is not supportive of him. When asked specifically about any psychiatric symptoms, he stated that he had been doing well on his Zoloft and had no symptoms of depression or other psychiatric problems at this time reporting that they were under good control and that his anxiety was related to his concerns about his 's involvement with her ex. He reported that he was not sure why he was admitted, but that his report they did not want him to return until he has "Zoloft increased." The review of systems below is for the last several months which is grossly negative. Consultants Involved Hospitalist/PCP screening Treatment and Progress On The Unit The patient was admitted to the inpatient unit, then after 48 hours of observation, it was determined that he was not demonstrating any bizarre behavior, he did not appear psychotic. Denied any suicidal or homicidal ideation through the entirety of his admission and had requested to be discharged de clining any further voluntary admission. The patient reportedly was brought in by girlfriend who had noticed he becoming more anxious and irritated at times; however, after 48 hours of observation, he did not meet involuntary criteria in my clinical judgment to the aforementioned factors above. He was able to participate with this discharge plan and was able to effectively engage in discussions and was able to describe the events that brought him in. His girlfriend had requested that we increase his sertraline; however, after discussion with the patient, he reports that he did not see the reason to do so and felt the sertraline was "just fine as is." Discharge Assessment The patient a 43-year-old man with intellectual disabilities, presents with increasing anxiety in the setting of his newly spending time with her ex-spouse causing him worries that she could be cheating on him. After 48 hours of observation, he does not appear to be heavily impaired by any psychotic thought process or other mental health problems and is not demonstrating any thoughts of harming himself or others, thus does not meet involuntary criteria f or further extension of his admission. Mental Status Examination General: Well dressed with good hygiene Speech: Spontaneous and fluid Thought processes: Linear and logical MSK: Smooth and coordinated gait, no signs of tremors or involuntary orofacial movements Thought content: Future orientated Abstract reasoning, and computation: Intact Description of associations: Intact Description of abnormal or psychotic thoughts: Denies any suicidal or homicidal ideation. Denies any auditory or visual hallucinations. Does not appear to be responding to internal stimuli. Does not appear to be endorsing any bizarre or paranoid ideation. Judgment: fair Insight: fair Orientation: Alert and orientated 3 Cognition: Grossly normal Recent and remote memory: Intact Attention span and concentration: Intact Fund of knowledge: Adequate Mood: "okay" Affect: Euthymic with a full range Follow Up The social work team worked during the predischarge meeting in order to evaluate for further issues of lethality address them fully before discharge. They worked on safety planning with the patient's family members in order to ensure that the patient will have a safe and effective discharge. Time Spent The amount of time spent in the coordination of care for this patient was approximately 30 minutes. Vital Signs/I&Os Vital Signs Date Time Temp Pulse Resp B/P (MAP) Pulse Ox O2 Delivery O2 Flow Rate FiO2 12/30/18 07:01 97.8 52 18 123/73 (90) 12/28/18 22:06 99 Room Air Medications Scheduled Atorvastatin Calcium (Atorvastatin Calcium) 20 Mg Tablet, 20 MG PO DAILY, (Reported) Lisinopril (Lisinopril) 10 Mg Tablet, 10 MG PO DAILY, (Reported) Nicotine (Nicotine Patch) 21 Mg Patch.td24, 1 PATCH TD DAILY for tobacco for 30 Days, #30 Pantoprazole Sodium (Pantoprazole Sodium) 20 Mg Tablet.dr, 20 MG PO DAILY, (Reported) Sertraline HCl (Sertraline HCl) 50 Mg Tablet, 50 MG PO DAILY, (Reported) Allergies Coded Allergies: No Known Allergies (Unverified , 06/14/18) ROSEMARY SAINI DO Dec 30, 2018 09:07
[2018-12-30 09:12] VITALS: BP 134/78
[2018-12-30] MEDS: SERTRALINE HCL 50 MG TAB PO SCH (09:12)
[2018-12-30] MEDS: ATORVASTATIN 20 MG TAB PO SCH (09:12)
[2018-12-30] MEDS: PANTOPRAZOLE 20 MG TAB PO SCH (09:12)
[2018-12-30] MEDS: LISINOPRIL 10 MG TAB PO SCH (09:12)
[2018-12-30] MEDS ORDERED: NICO21PAT TD (09:15)
--- NOTE | 2018-12-30 14:43 | IPNPDOC ---
Date Seen Progress Note attempted to visit patient for requested consultative services. Unfortunately was notified by nursing staff that patient has already been discharged. In keeping with Unit requests, patient was not visited [id number] or 130-330 VS, I&O, 24H, Fishbone Vital Signs/I&O Vital Signs Date Time Temp Pulse Resp B/P (MAP) Pulse Ox O2 Delivery O2 Flow Rate FiO2 12/30/18 09:12 134/78 12/30/18 07:01 97.8 52 18 12/28/18 22:06 99 Room Air THADDEUS POMPA MD Dec 30, 2018 14:43
== END 2018-12-30 11:00 | disposition home or self-care (01) | DRG 755 ==
LOC: M ED 15:54 → M ED INP 19:48 → M PSY 22:06
PROVIDERS: ADMIT Psychiatry & Neurology Psychiatry; ATTEND Psychiatry & Neurology Addiction Medicine
DX: F43.12 Post-traumatic stress disorder, chronic (principal); F71 Moderate intellectual disabilities; F10.10 Alcohol abuse, uncomplicated; F17.200 Nicotine dependence, unspecified, uncomplicated; F14.90 Cocaine use, unspecified, uncomplicated; Z79.899 Other long term (current) drug therapy